=== PATIENT | female | born 2000 | race Caucasian/White ===

== ENCOUNTER 2022-11-03 20:27 | Emergency (ER) | payer BC, SELFPAY ==
--- NOTE | ~2022-11-03 | CT_ITS ---
EXAMINATION: CTA brain carotid DATE: 11/03/2022 21:47 INDICATION: Left facial droop. TECHNIQUE: Computed tomographic angiography (CTA) of the head was performed without and with 200 mL O mnipaque-350 intravenous contrast. CTA of the neck was performed with intravenous contrast. Automated exposure control and iterative reconstruction technique were employed. The dose-length product was 2 969.56 mGy-cm. Maximum intensity projection and volume rendered 3D-reconstructions were created by albert davila technologist on a separate workstation. COMPARISON: None. FINDINGS: HEAD CTA: There is no intracranial hemorrhage, acute infarction, or abnormal intracranial mass lesion . The ventricles are normal in size. The orbits are normal. There is mild mucosal thickening in the p aranasal sinuses. There is a trace right mastoid effusion. The vertebral arteries are codominant. The re is no significant stenosis of basilar artery or the posterior cerebral arteries. There is no signi ficant stenosis of the intracranial internal carotid arteries or anterior or middle cerebral arteries . Anterior communicating artery is normal. Right posterior communicating artery is normal. A left pos terior communicating artery is not identified. There is no aneurysm. NECK CTA: There are no pathologically enlarged lymph nodes. There is no visible plaque in the proxima l internal carotid arteries. There is 0% stenosis of the proximal right internal carotid artery relat zander to normal distal artery lumen diameter (NASCET criteria). There is 0% stenosis of the proximal le ft internal carotid artery relative to normal distal artery lumen diameter. There is mild cervical sp ondylosis. IMPRESSION: 1. Normal brain. No aneurysm or significant intracranial arterial stenosis. 2. 0% stenosis of the proximal internal carotid arteries relative to normal distal artery lumen diame ters (NASCET criteria). Reviewed, dictated and finalized at location [facility]. [facility]ER PANTOGRAPH IMPRESSION: 1. Normal brain. No aneurysm or significant intracranial arterial stenosis. 2. 0% stenosis of the proximal internal carotid arteries relative to normal dis charu artery lumen diameters (NASCET criteria).
[2022-11-03 20:33] VITALS: BP 179/111; PULSE 122; RESP 20; TEMP 36.7; O2SAT 97
--- NOTE | 2022-11-03 20:39 | ECG_ITS ---
Measurements Intervals [place] Rate: 101 P: 60 HI: 166 QRS: 19 QRSD: 89 T: -22 QT: 304 QTc: 396 Interpretive Statements SINUS TACHYCARDIA ST-T WAVE ABNORMALITY IN INFERIOR LEADS- CONSIDER ISCHEMIA BASELINE ARTIFACT- I, II, AVR, V1 ABNORMAL ECG NO PREVIOUS ECG AVAILABLE FOR COMPARISON Electronically Signed On 11-04-2022 7:53:08 RECRUITMENT ADVERTISING MANAGER by Deacon Gonzalez D.O.
[2022-11-03 20:43] LABS: Glucose Point of Care 104 mg/dl (65-105)
[2022-11-03 21:02] VITALS: BP 162/112; PULSE 117; RESP 25; O2SAT 98
[2022-11-03 21:02] LABS: Alanine Aminotransferase 51 U/L (6-35); Albumin Level 4.7 g/dL (3.5-5.1); Alkaline Phosphatase 76 U/L (38-126); Anion Gap 8 mmol/L (8-16); Aspartate Amino Transferase 30 U/L (14-36); Bilirubin,Total 0.4 mg/dL (0.2-1.3); Blood Urea Nitrogen 10 mg/dL (7-17); Carbon Dioxide 26 mmol/L (22-30); Chloride 102 mmol/L (98-107); Estimated Glomerular Filt Rate > 60; Glucose 97 mg/dL (65-110); Potassium 3.5 mmol/L (3.4-5.0); Sodium 136 mmol/L (137-145)
[2022-11-03 21:04] LABS: Prothrombin Time 12.3 Seconds (11.1-14.7)
[2022-11-03 21:05] LABS: Partial Thromboplastin Time 28.9 SECONDS (22.3-36.8)
[2022-11-03 21:14] LABS: Troponin I < 0.012 ng/mL (0.000-0.034)
[2022-11-03 21:17] LABS: Basophils Percent Auto 0.4 % (0.2-1.2); Eosinophils Absolute Auto 0.1 K/mm3 (0-0.3); Eosinophils Percent Auto 1.3 % (0-4.4); Hematocrit 43.7 % (37.0-47.0); Hemoglobin 14.6 g/dL (12.0-15.0); Immature Granulocyte Absolute 0.01 K/mm3 (0.00-0.031); Immature Granulocyte Percent A 0.1 % (0-0.5); Lymphocytes Absolute Auto 2.96 K/mm3 (0.9-3.2); Lymphocytes Percent Auto 31.5 % (18.3-44.2); Mean Corpuscular HGB Conc 33.4 g/dl (32-36); Mean Corpuscular Hemoglobin 29.3 pg (26-34); Mean Corpuscular Volume 87.8 fl (80-100); Mean Platelet Volume 9.1 fl (7.4-10.4); Monocytes Absolute Auto 0.7 K/mm3 (0.1-0.6); Monocytes Percent Auto 7.2 % (2.6-8.5); Neutrophils Absolute Auto 5.6 K/mm3 (1.3-6.7); Neutrophils Percent Auto 59.5 % (45.5-73.1); Platelet Count Result 455 k/mm3 (150-375); Red Blood Count 4.98 M/mm3 (4.2-5.4); Red Cell Distribution Width 13.5 % (11.5-14.5); White Blood Count 9.4 K/mm3 (4.5-10.0)
[2022-11-03 22:00] VITALS: BP 164/108; PULSE 108; RESP 28; O2SAT 100
[2022-11-03 22:40] VITALS: PULSE 100; RESP 18; O2SAT 100
--- NOTE | 2022-11-03 23:10 | ED.NEUROSD ---
HPI - Neuro Symptoms/Deficit General Chief Complaint: Suspected CVA Stated Complaint: left side face droop, headache x2 weeks Time Seen by Provider: 11/03/22 20:54 History of Present Illness HPI Narrative: Patient is a 22-year-old female who presents ER with left-sided facial weakness. She first began to notice it on 10/31/2022. She reports she was high and on her phone when she noticed that the left side of her face was not working well. Over the next couple days she remained at home and did not interact with others. This evening she noticed that the left side of her mouth was not working in a more prominent manner when she smiled and prompted her to come to the ER for evaluation. She is not having trouble eating or drinking. She does have trouble closing her eye and raising her left eyebrow. She has some tingling to the tongue and face. She reports last week she had a febrile illness associate with runny nose and cough. She had had COVID another month or 2 earlier. She has no cough at this time. No shortness of breath. She reports occasional chest discomfort but not with exertion or with deep breaths. She is tried no medications. She has no dizziness or focal weakness in arm or leg. Related Data Allergies Allergy/AdvReac Type Severity Reaction Status Date / Time No Known Allergies Allergy Verified 11/03/22 20:28 Review of Systems Review of Systems: All systems reviewed & are unremarkable except as noted in HPI and below Constitutional: Constitutional: Denies chills and Denies fatigue Eyes: Eyes: Denies dry eyes and Denies loss of vision Cardiovascular: Cardiovascular: Reports no additional cardiovascular complaints Respiratory: Respiratory: Reports no additional respiratory complaints Integumentary/Breasts: Skin/Breast: Denies rash and Denies skin ulcer Neurologic: Reports system reviewed and no additional complaints, except as documented PMFSH Past Medical History Medical History (Updated 11/04/22 @ 06:07 by Gurmeet Laird MD) Depression Surgical History Surgical History (Updated 11/04/22 @ 06:07 by Gurmeet Laird MD) No pertinent past surgical history Social History Social History (Updated 11/04/22 @ 06:09 by Gurmeet Laird MD) Substance use type: marijuana Exam Narrative: GENERAL: Well-appearing, well-nourished, and in no acute distress. HEAD: Normocephalic, atraumatic. EYES: PERRL and EOMI. ENT: Mucous membranes moist. CHEST: Clear to auscultation. No respiratory distress. HEART: Regular rate and rhythm. Normal peripheral pulses. ABDOMEN: Soft, nontender, nondistended. EXTREMITIES: Normal range of motion. No edema. SKIN: Warm, dry, no rash. NEURO: N patient unable to smile and left side of her face, she also has weakness with closing her eye and with lifting her left eyebrow. Sharp and soft touch intact throughout the face. No upper or lower extremity weakness or numbness. Normal [id number] testing and finger-nose testing. Alert and oriented x3. PSYCH: Normal mood and affect. Course Course Emergency Course: Patient resting comfortably. She has been informed of imaging results as well as lab results. 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 We discussed treatment including prednisone and valacyclovir. Recommend follow-up with PCP for further treatment and evaluation. Patient is verbalized understanding has no additional questions/concerns at this time. Vital Signs Vital signs: Vital Signs Temperature 98.0 F 11/03/22 20:33 Pulse Rate 122 H 11/03/22 20:33 Respiratory Rate 20 11/03/22 20:33 Blood Pressure 179/111 H 11/03/22 20:33 Pulse Oximetry 97 11/03/22 20:33 Oxygen Delivery Room Air 11/03/22 20:33 Temperature 98.0 F 11/03/22 20:33 Pulse Rate 100 11/03/22 22:40 Respiratory Rate 18 11/03/22 22:40 Blood Pressure 164/108 H 11/03/22 22:00 Pulse Oximetry 100
== END 2022-11-03 23:47 | disposition home or self-care (01) ==
PROVIDERS: Emergency Provider Emergency Medicine
DX: G51.0 Bell's palsy (principal); Z86.16 Personal history of COVID-19; R00.0 Tachycardia, unspecified; R94.31 Abnormal electrocardiogram [ECG] [EKG]
CPT/HCPCS: 36415; 70496; 70498; 80053; 81025; 82948; 84484; 85025; 85610; 85730; 93005; 99284; Q9967

== ENCOUNTER 2023-08-03 05:56 | Observation (INO) | payer BC, SELFPAY ==
[2023-08-03] VITALS (23 sets, daily range): BP systolic 108–171; BP diastolic 49–103; PULSE 71–108; RESP 14–26; TEMP 36–37.3; O2SAT 98–100; BMI 64.3
--- NOTE | ~2023-08-03 | CT_ITS ---
Clinical Indication: Chest pain, shortness of breath CT Scan of the Chest with Contrast: Technique: Contiguous sections were acquired throughout the chest after intravenous administration of 100 cc of Omnipaque 350. Dose reduction technique was used on this scan by utilizing automated expos ure control and iterative reconstruction technique. The dose-length product (DLP) was 943.19 mGy-cm. Findings: There is no evidence of any significant mediastinal, hilar or axillary lymphadenopathy. There is no f illing defect in the pulmonary arterial tree to suggest pulmonary embolus. There is no evidence of ao rtic dissection or aneurysm. There is no evidence of pleural or pericardial effusion. The lungs are clear. No pulmonary nodules or infiltrates are noted. Images through the upper abdomen reveal suspected fatty infiltration of the liver. Impression: No evidence of pulmonary embolus, aortic dissection, or aortic aneurysm. Clear lungs. Reviewed, dictated and finalized at [facility]. Impression: No evidence of pulmonary embolus, aortic dissection, or aortic aneurysm. Clear lungs.
--- NOTE | ~2023-08-03 | CT_ITS ---
EXAMINATION: CT abdomen pelvis w con DATE: 08/04/2023 15:56 INDICATION: Abdominal pain. TECHNIQUE: Computed tomography (CT) of the abdomen and pelvis was performed with 100 mL Omnipaque 350 intravenous contrast. Automated exposure control and iterative reconstruction technique were employe d. The dose-length product was 1712.33 mGy-cm. COMPARISON: Chest CT 08/03/2023 FINDINGS: The visualized portions of the lung bases are clear without pneumonia or pleural effusion. The heart size is normal. No pericardial effusion. There is diffuse hepatic steatosis. The gallbladde r, spleen, pancreas, adrenal glands, and kidneys are normal. There are no dilated loops of bowel. The appendix is normal. There are no pathologically enlarged lymph nodes. There is no free intraperitone al fluid. There is mild thoracic and lumbar spondylosis. IMPRESSION: 1. Diffuse hepatic steatosis. Reviewed, dictated and finalized at location [facility].
--- NOTE | ~2023-08-03 | US_ITS ---
US right upper quadrant DATE: 08/03/2023 09:04 INDICATION: Epigastric abdominal pain TECHNIQUE: Real-time imaging of liver, pancreas, gallbladder COMPARISON: None FINDINGS: Examination is limited due to body habitus. There is nonspecific heterogeneous hyperechoic echotexture of the liver, likely due to hepatic steato sis. No discrete focal mass lesion of the liver is detected. Normal hepatopedal portal venous flow. No gallstones or gallbladder wall thickening or abnormal pericholecystic fluid collection is detected . No bile duct dilatation is noted. The common bile duct is not well demonstrated. The pancreas is obscured. IMPRESSION: Limited examination due to body habitus; consider CT abdomen examination No gallstones or gallbladder wall thickening Suspected hepatic steatosis Reviewed, dictated and finalized at [facility]. Reviewed, dictated and finalized at location [facility]. IMPRESSION: Limited examination due to body habitus; consider CT abdomen examin ation No gallstones or gallbladder wall thickening Suspected hepatic steatosis
--- NOTE | 2023-08-03 06:12 | ECG_ITS ---
Measurements Intervals [place] Rate: 97 P: 22 UT: 159 QRS: 15 QRSD: 94 T: 241 QT: 330 QTc: 421 Interpretive Statements SINUS RHYTHM ST DEVIATION AND MODERATE T-WAVE ABNORMALITY, CONSIDER LATERAL ISCHEMIA [-0.1+ mV T WAVE IN I/aVL/V5/V6] ST DEVIATION AND MODERATE T-WAVE ABNORMALITY, CONSIDER INFERIOR ISCHEMIA [-0.1+ mV T WAVE IN II/aVF] COMPARED TO ECG 11/03/2022 21:08:51 SINUS RHYTHM NOW PRESENT Electronically Signed On 08-03-2023 15:00:24 CDT by Constantine Madrigal M.D.
[2023-08-03 06:32] LABS: Glucose Point of Care 122 mg/dl (65-105)
[2023-08-03 06:45] LABS: Basophils Percent Auto 0.3 % (0.2-1.2); Eosinophils Absolute Auto 0.1 K/mm3 (0-0.3); Eosinophils Percent Auto 1.3 % (0-4.4); Hematocrit 42.4 % (37.0-47.0); Immature Granulocyte Absolute 0.04 K/mm3 (0.00-0.031); Immature Granulocyte Percent A 0.4 % (0-0.5); Lymphocytes Absolute Auto 1.84 K/mm3 (0.9-3.2); Lymphocytes Percent Auto 20.5 % (18.3-44.2); Mean Corpuscular Hemoglobin 29.2 pg (26-34); Mean Corpuscular Volume 88.5 fl (80-100); Mean Platelet Volume 9.2 fl (7.4-10.4); Monocytes Absolute Auto 0.7 K/mm3 (0.1-0.6); Monocytes Percent Auto 8.1 % (2.6-8.5); Neutrophils Absolute Auto 6.2 K/mm3 (1.3-6.7); Neutrophils Percent Auto 69.4 % (45.5-73.1); Platelet Count Result 365 k/mm3 (150-375); Red Blood Count 4.79 M/mm3 (4.2-5.4); Red Cell Distribution Width 13.5 % (11.5-14.5)
[2023-08-03 06:53] LABS: Alanine Aminotransferase 45 U/L (6-35); Albumin Level 4.2 g/dL (3.5-5.1); Alkaline Phosphatase 70 U/L (38-126); Anion Gap 10 mmol/L (8-16); Aspartate Amino Transferase 39 U/L (14-36); Bilirubin,Total 0.6 mg/dL (0.2-1.3); Blood Urea Nitrogen 7 mg/dL (7-17); Calcium 8.6 mg/dL (8.4-10.2); Carbon Dioxide 22 mmol/L (22-30); Chloride 106 mmol/L (98-107); Estimated CRCL calculation 171 ml/min; Estimated Glomerular Filt Rate > 60; Glucose 123 mg/dL (65-110); Potassium 3.4 mmol/L (3.4-5.0); Sodium 138 mmol/L (137-145)
--- NOTE | 2023-08-03 07:13 | PC.NURSE ---
Report to JEROME Jeffers
[2023-08-03] MEDS: SODIUM CHLORIDE 0.9% IV 1,000 ML 999 ML IV CONT (07:44)
[2023-08-03] MEDS: ONDANSETRON INJ 4 MG/2 ML VIAL IV PUSH (07:46)
[2023-08-03] MEDS: MORPHINE SULFATE (*CRX) 4 MG/ML INJ IV PUSH (07:47)
[2023-08-03 07:48] LABS: Appearance Urine Turbid (Clear); Bacteria Urine 4+ /hpf; Bilirubin Urine 1+ (Negative); Blood Urine Negative (Negative); Color Urine Dark Yellow (Yellow); Glucose Urine UA Negative (Negative); Ketones Urine Negative (Negative); Leukocyte Esterase Ur 1+ LEU/UL (Negative); Need Manual Microscopic Reviewed; Nitrate Urine Negative (Negative); Non Pathogenic Casts >20; Protein Urine 1+ mg/dL (Negative); Specific Grav Ur 1.028 (1.001-1.035); Squamous Epithelial Cell Urine Many /hpf (Few); WBC Urine 51-100 /hpf; pH Urine 5.5 (5.0-9.0)
[2023-08-03 07:49] LABS: Add Urine Microscopic? YES
--- NOTE | 2023-08-03 07:50 | ED.GENADULT ---
HPI - General Adult General Chief complaint: Unspecified Stated complaint: multiple complaints Time Seen by Provider: 08/03/23 07:01 History of Present Illness HPI narrative: Patient is a 23-year-old female who presents ER with multiple issues. Her main complaint is chest pain central for the last couple of days. Associated with dyspnea. Pain worsens with deep breath. She endorses an exertional syncope related to this x2. She also reports poor appetite and pain with eating. She has some mild epigastric pain that is worse with palpation. No diarrhea. No nausea or vomiting. Subjective fevers and chills. Patient is morbidly obese but otherwise denies any chronic illness. Related Data Home Medications Medication Instructions Recorded Confirmed No Home Medications 08/03/23 08/03/23 Allergies Allergy/AdvReac Type Severity Reaction Status Date / Time No Known Allergies Allergy Verified 11/03/22 20:28 Review of Systems Review of Systems: All systems reviewed & are unremarkable except as noted in HPI and below Constitutional: Constitutional: Reports chills, Reports fatigue and Reports fever(s) ENT: Denies nasal congestion and Denies sore throat Cardiovascular: Cardiovascular: Reports chest pain, Denies rapid heart rate, Denies radiating jaw, neck or arm pain, Denies palpitations and Reports dyspnea Respiratory: Respiratory: Denies cough, Reports pain on inspiration, Denies pain with cough and Reports dyspnea on exertion Gastrointestinal: Gastrointestinal: Reports abdominal pain, Denies constipation, Denies diarrhea, Denies nausea and Denies vomiting Musculoskeletal: Musculoskeletal: Reports no additional musculoskeletal complaints PMFSH Past Medical History Medical History Anxiety Asthma Borderline personality disorder Depression Hypertension Meningitis Morbid obesity Seizure Suicide attempt Surgical History Surgical History History of eye surgery Left eye surgery for amblyopia Social History Social History Social History: Surrogate medical decision maker: Taras Pruitt, significant other. Code status: Full code. Smoking status: Never smoker Alcohol intake: never Substance use: current Substance use type: marijuana Last use: 07/31/23 Lack of Transportation: No Lack of Food: Never True Current Housing: I Have Housing Concerned About Future Housing: No Difficulty Paying Gas/Electric Bills: No Difficulty Paying for Meds: No Currently Unemployed: No Education: High School Diploma/GED Difficulty w/ Childcare or Family Care: No Additional living arrangements comments: Lives in [place]. Additional occupation/education comments: [employer]. Spiritual care concerns: No Exam Narrative: GENERAL: Well-appearing, morbidly obese, and in no acute distress. HEAD: Normocephalic, atraumatic. EYES: PERRL and EOMI. ENT: Mucous membranes moist. CHEST: Clear to auscultation. No respiratory distress. HEART: Regular rate and rhythm. Normal peripheral pulses. ABDOMEN: Soft, epigastric tenderness with guarding, nondistended. EXTREMITIES: Normal range of motion. No edema. SKIN: Warm, dry, no rash. NEURO: Alert and oriented x3. PSYCH: Normal mood and affect. Course Course Emergency Course: Patient without urinary symptoms but urine appears infected. Will start on IV antibiotics. Patient with exertional syncope and chest pain with ST depression. Admit to hospital service. Sandy Duron contacted with cardiology and will consult. Hospital service has accepted the patient would like the patient started on some antihypertensives, lisinopril 10 mg ordered. Vital Signs Vital signs: Vital Signs Pulse Rate 94 08/03/23 06:06 Respiratory Rate 16 08/03/23 06:06 Blood Pressure 159/103 H 08/03/23 06:06 P
--- NOTE | 2023-08-03 07:52 | PC.NURSE ---
Pt to CT via stretcher at this time. 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
[2023-08-03 10:22] LABS: Troponin I < 0.012 ng/mL (0.000-0.034)
[2023-08-03 10:36] LABS: Troponin I < 0.012 ng/mL (0.000-0.034)
[2023-08-03 12:40] LABS: Troponin I < 0.012 ng/mL (0.000-0.034)
[2023-08-03] MEDS: lisinopriL 10 MG TABLET PO (13:30)
--- NOTE | 2023-08-03 14:23 | PM.IMHP ---
H&P: HPI History of Present Illness Date/Time: 08/03/23 13:00 Chief Complaint: Multiple complaints. Narrative: This is a very pleasant 23-year-old female with history of seizure, hypertension, asthma, depression, anxiety, morbid obesity, posttraumatic stress disorder, and borderline personality disorder who presented to the emergency department via private vehicle for evaluation of multiple complaints. The patient provides the following history. She had a flu shot on and had an uneventful 2 days thereafter. Wednesday evening into Wednesday morning she developed ?excruciating? diffuse abdominal pain associated with nausea and several episodes of diarrhea. She also felt chilled, feverish, and flushed. After repeated trips to the bathroom she started to feel a bit short of breath when walking last couple of days she has had a mid chest ?gripping? discomfort which seems to extend down into the abdomen. She has vague posterior headache and neck ache for which she has been taking acetaminophen, ibuprofen, and Excedrin without much benefit. Yesterday morning she walked down the steps to fetch a package and at that time she was feeling very weak, lightheaded, and ?fuzzy.? She briefly lost consciousness and fell forward onto the top step. She came to quite quickly and sustained no injuries. She decided to come in today for evaluation as she still feels weak. She denies sick contacts, visual changes, facial droop, difficulty speaking and swallowing, focal weakness, paresthesias, sensations of racing heart, vomiting, and dysuria. She has occasional lower extremity edema but denies calf pain. No history of venous thromboembolism. In the ED: She was afebrile on arrival. Blood pressures have been stable if not a bit high. She has no oxygen requirement. Labs were pretty unremarkable aside from a random glucose of 122 and mildly elevated AST and ALT. Troponin was negative. Urine was positive for 1+ leukocyte esterase, 51 to 100 WBC, and 4+ bacteria however many squamous cells were noted and she admits that she had a difficult time obtaining a clean-catch. She has absolutely no symptoms of UTI. CT of the chest was unremarkable. Right upper quadrant showed no gallstones or gallbladder wall thickening and suspected hepatic steatosis. EKG showed sinus rhythm with ST deviation and moderate T-wave abnormalities in the lateral and inferior leads which is similar to a previous EKG tracing in October 2022. She is being admitted in this setting for close monitoring and Cardiology consultation. Review of Systems Review of Systems: Twelve systems were reviewed and are negative except for as per HPI. [facility] Past Medical History Medical History (Updated 08/03/23 @ 23:53 by Nazanin Bernardo PA-C) Anxiety Asthma Borderline personality disorder Depression Hypertension Meningitis Morbid obesity Seizure Suicide attempt Surgical History Surgical History History of eye surgery Left eye surgery for amblyopia Social History Social History Social History: Surrogate medical decision maker: Taras Pruitt, significant other. Code status: Full code. Smoking status: Never smoker Alcohol intake: never Substance use: current Substance use type: marijuana Last use: 07/31/23 Lack of Transportation: No Lack of Food: Never True Current Housing: I Have Housing Concerned About Future Housing: No Difficulty Paying Gas/Electric Bills: No Difficulty Paying for Meds: No Currently Unemployed: No Education: High School Diploma/GED Difficulty w/ Childcare or Family Care: No Additional living arrangements comments: Lives in [place]. Additional occupation/education comments: [employer]. Spiritual care concerns: No Meds Home Medications and Allergies Home Medications Medication Instructions Recorded Confirmed Type No Home M
--- NOTE | 2023-08-03 14:52 | PM.CNCAR ---
Assessment and Plan Assessment and plan (1) Chest pain: Code(s): R07.9 - Chest pain, unspecified Status: Acute Assessment and Plan: Atypical chest pain. She has normal serial troponin levels and EKG from today looks unchanged from EKG in October. She does have some lateral T-wave inversions, minimal ST depression leads I and II. Chest pain likely noncardiac. Will check an echocardiogram. She does have risk factors for cardiovascular disease including morbid obesity and hypertension. No further cardiac recommendations at this point. Will leave any further recommendations after review of echocardiogram. (2) Syncope: Code(s): R55 - Syncope and collapse Status: Acute Assessment and Plan: Probably related to hypovolemia/hypotension from diarrhea and vomiting. Check orthostatic vital signs. Continue telemetry History of Present Illness History of Present Illness Consult date/time: 08/03/23 14:52 Requesting physician: Gurmeet Laird MD Consult reason: chest pain Reason For Visit: exertional syncope,uti Narrative: Nidhi Croft is a 23-year-old female with no known medical problems. She comes to the hospital with a chief complaint of mid epigastric pain as well as substernal chest pain. The pain began 2 days ago. She describes the pain as a feeling like somebody is tightening their hand around her esophagus. She also has chest discomfort with deep breathing. She states that when she takes a deep breath the pain radiates from her chest down to her stomach, through her back, and then to her head. She has also had 2 syncopal events in the past 2 days. One of these events happened when she was ascending the stairs and another happened when she was walking from the kitchen to her bedroom. She states that she did lose consciousness both times. She states that she has had vomiting and diarrhea as well and both of these events happen after she began to have significant diarrhea. She denies any palpitations, shortness of breath. She states that she had improvement of her chest pain in the emergency department when she received morphine but her chest discomfort has returned at this point. Review of Systems Review of Systems: All systems reviewed & are unremarkable except as noted in HPI and below PMFSH Past Medical History Medical History Anxiety Asthma Borderline personality disorder Depression Hypertension Meningitis Morbid obesity Seizure Suicide attempt Surgical History Surgical History History of eye surgery Left eye surgery for amblyopia Social History Social History Social History: Surrogate medical decision maker: Taras Pruitt, significant other. Code status: Full code. Smoking status: Never smoker Alcohol intake: never Substance use: current Substance use type: marijuana Last use: 07/31/23 Lack of Transportation: No Lack of Food: Never True Current Housing: I Have Housing Concerned About Future Housing: No Difficulty Paying Gas/Electric Bills: No Difficulty Paying for Meds: No Currently Unemployed: No Education: High School Diploma/GED Difficulty w/ Childcare or Family Care: No Additional living arrangements comments: Lives in [place]. Additional occupation/education comments: [employer]. Spiritual care concerns: No Meds Home Medications and Allergies Home Medications Medication Instructions Recorded Confirmed Type No Home Medications 08/03/23 08/03/23 History Allergies Allergy/AdvReac Type Severity Reaction Status Date / Time No Known Allergies Allergy Verified 11/03/22 20:28 Vital Signs Vital Signs - 24 hr 08/03/23 06:06 08/03/23 06:33 08/03/23 06:34 Temperature Pulse Rate 94 94 101 H Respiratory Rate 16 26 H Blood Pressure 159/10
[2023-08-03] MEDS: ACETAMINOPHEN 325 MG TABLET 650 MG PO ×2 (17:15→21:00)
[2023-08-03] MEDS: ENOXAPARIN 40 MG/0.4 ML SYRINGE SUB-Q (20:59)
[2023-08-04] VITALS (10 sets, daily range): BP systolic 103–162; BP diastolic 53–84; PULSE 71–88; RESP 16–20; TEMP 36.1–36.7; O2SAT 98–100
[2023-08-04] MEDS: metroNIDAZOLE 500 MG/ISO 100ML 500 MG/100 ML BAG 100 MG IVPB ×4 (00:58→23:31)
[2023-08-04] MEDS: LACTATED RINGERS 1,000 ML 100 ML IV CONT ×3 (01:03→23:32)
--- NOTE | 2023-08-04 06:00 | ECHO_ITS ---
Patient Info Name: Nidhi Croft Age: 23 years : 2000 Gender: Female Ht: 64 in Wt: 375 lbs BSA: 2.89 m2 HR: 80 bpm BP: 106 / 57 mmHg Heart Rhythm: Sinus Rhythm Technical Quality: Poor Exam Date: 08/04/2023 9:28 AM Exam Location: [facility] Patient Status: Outpatient Admit Date: 08/03/2023 Staff Ordering Physician: Gurmeet Laird MD Deoiling Machine Operator: Ria Arzola RDCS Attending Provider: Saad Vasquez MD Referring Physician: Eitan FISHER; Exam Type: CA echo dop color flow w con Study Info Indications - syncope Complete two-dimensional, color flow and Doppler transthoracic echocardiogram is performed with contrast to opacify the left ventricle and to improve the deliniation of the left ventricle endocardial borders. Contrast/Agitated Saline Contrast/Ag. Saline: Definity Amount: 3.00 ml Reason for Poor Study: poor echocardiographic windows Summary 1. Technically difficult study with limited views. Definity contrast administered. 2. Left ventricular chamber dimension is normal. 3. Left ventricular systolic function is normal, estimated at 60-65%. 4. There is moderately increased left ventricular wall thickness. 5. The left ventricular diastolic function is grade II diastolic dysfunction. 6. There is no aortic valve stenosis. 7. There is no mitral valve regurgitation. 8. No pulmonary hypertension, estimated pulmonary arterial systolic pressure is 14 mmHg. 9. The tricuspid valve leaflets are not well visualized. Left Ventricle Left ventricular chamber dimension is normal. Left ventricular systolic function is normal, estimated at 60-65%. There is moderately increased left ventricular wall thickness. The left ventricular diastolic function is grade II diastolic dysfunction. Technically difficult study with limited views. Definity contrast administered. Right Ventricle Right ventricular chamber dimension is normal. Right ventricular systolic function is normal. Left Atria Left atrial chamber dimension is normal. Right Atria Right atrial chamber dimension is normal. Aortic Valve The aortic valve is not well visualized. There is no aortic valve stenosis. There is no aortic valve regurgitation. Pulmonic Valve The pulmonic valve is not well visualized. Mitral Valve The mitral valve has normal leaflets. There is no mitral valve regurgitation. Tricuspid Valve The tricuspid valve leaflets are not well visualized. No pulmonary hypertension, estimated pulmonary arterial systolic pressure is 14 mmHg. Pericardium/Pleural The pericardium appears not well visualized. There is trivial pericardial effusion. Aorta The aortic root size at the sinus of Valsalva is normal. Left Ventricular Outflow Tract Name Value Normal LVOT 2D LVOT Diameter 2.09 cm LVOT Doppler LVOT Peak Gradient 5 mmHg LVOT Mean Gradient 3 mmHg LVOT VTI 28.25 cm LVOT VTI/AV VTI Ratio 0.90 LVOT Stroke Volume 96.47 ml LVOT CO 6.56 l/min LVOT CI
[2023-08-04 06:05] LABS: Hemoglobin 12.5 g/dL (12.0-15.0); Mean Corpuscular HGB Conc 32.1 g/dl (32-36); Mean Corpuscular Hemoglobin 29.3 pg (26-34); Mean Corpuscular Volume 91.5 fl (80-100); Mean Platelet Volume 9.5 fl (7.4-10.4); Platelet Count Result 333 k/mm3 (150-375); Red Blood Count 4.26 M/mm3 (4.2-5.4); White Blood Count 5.3 K/mm3 (4.5-10.0)
[2023-08-04 06:22] LABS: Alanine Aminotransferase 61 U/L (6-35); Albumin Level 3.6 g/dL (3.5-5.1); Alkaline Phosphatase 59 U/L (38-126); Anion Gap 6 mmol/L (8-16); Aspartate Amino Transferase 48 U/L (14-36); Bilirubin,Total 0.4 mg/dL (0.2-1.3); Blood Urea Nitrogen 9 mg/dL (7-17); CRP 4.1 mg/dL (<1.0); Calcium 8.2 mg/dL (8.4-10.2); Carbon Dioxide 26 mmol/L (22-30); Chloride 106 mmol/L (98-107); Estimated CRCL calculation 172 ml/min; Estimated Glomerular Filt Rate > 60; Glucose 98 mg/dL (65-110); Magnesium 2.2 mg/dL (1.6-2.3); Potassium 3.2 mmol/L (3.4-5.0); Sodium 138 mmol/L (137-145)
--- NOTE | 2023-08-04 08:36 | PC.NURSE ---
pt refusing breakfast stating she is getting discharged this am. nurse explained that we don't have a discharge order in. nurse stating that if she is getting discharged, sometimes it isn't until later in the day. nurse stated that the doctors haven't made their rounds yet to make the determination about discharge status. pt still refuses breakfast and instead wants an apple juice.
[2023-08-04] MEDS: ENOXAPARIN 40 MG/0.4 ML SYRINGE SUB-Q (08:50)
[2023-08-04] MEDS: PERFLUTREN LIPID MICROSPHERES 1.5 ML VIAL DILUTED TO 10 ML TOTAL VOLUME IV PUSH (09:30)
--- NOTE | 2023-08-04 09:39 | P.PNIM_ITS ---
Progress Note: A&P Assessment and Plan (1) Syncope: Code(s): R55 - Syncope and collapse Status: Acute Assessment and Plan: 08/03/2023: * Patient had a syncopal episode yesterday with prodrome to include weakness, lightheadedness, dizziness, and darkening vision. Likely due to orthostatic hypotension or component of dehydration from diarrhea. Cardiac dysrhythmia is a consideration but seems less likely. She is being monitored on telemetry. Echocardiogram ordered given abnormal EKG. 08/04/23: * Denies lightheadedness, dizziness, blurred vision, headache today * Cardiology consulted in following * Echo completed today, pending results (2) Chest pain: Code(s): R07.9 - Chest pain, unspecified Status: Acute Assessment and Plan: 08/03/23: * She has reproducible tenderness to palpation over the chest wall. Unlikely to be cardiac in etiology. Echo pending as above. 08/04/23: * Patient denies any chest pain at this time * Echo results pending (3) Left sided abdominal pain: Code(s): R10.9 - Unspecified abdominal pain Status: Acute Assessment and Plan: 08/03/2023: * Patient has had abdominal pain and diarrhea the last several days. May have diverticulitis or a colitis. She had contrast today already and her abdominal exam is not too bad thus will hold on imaging at this time. She has been started on ceftriaxone and metronidazole. If no improvement imaging may be prudent. 08/04/23: * Patient states that she has right upper quadrant pain and right lower quadrant pain today. * UA positive for 1+ protein, 1+ bili, 1+ leukocyte, 4+ bacteria. UA did show many epithelial cells which could be contamination of the specimen. On exam p atient denies any urinary urgency, frequency, dysuria, hematuria. * Urine culture pending * Continue Rocephin and Flagyl for now * Will get a CT the abdomen pelvis today to rule out diverticulitis, pancr eatitis, colitis. (4) Abnormal EKG: Code(s): R94.31 - Abnormal electrocardiogram [ECG] [EKG] Status: Acute Assessment and Plan: 08/03/2023: * EKG shows ST deviations in the inferior and lateral leads however these are comparable to a tracing obtained in October 2022. Cardiology has been consulted for further evaluation recommendations. Echocardiogram is pending. 08/04/2023: * Cardiology consulted and following * Echo pending results (5) Abnormal urinalysis: Code(s): R82.90 - Unspecified abnormal findings in urine Status: Acute Assessment and Plan: 08/03/2023: * Patient is not having any symptoms of UTI and she admits having difficulties trying to obtain a clean-catch specimen. This looks contaminated and she does not give any history to suggest active UTI. 08/04/2023: * Patient denies any urinary frequency, urgency, hematuria, dysuria. * UA positive for 1+ protein, 1+ bili, 1+ leukocytes, 4+ bacteria, multiple epithelial cells seen on this specimen indicate contamination * Urine culture pending * Continue Rocephin for now * Will obtain another clean-catch specimen today (6) Hypertension: Code(s): I10 - Essential (primary) hypertension Status: Acute Assessment and Plan: 08/03/2023: * Blood pressures were reviewed and they have been running a bit high. She received lisinopril 10 mg in the ED. Unclear if this is a home medication. Continue to monitor closely and initiate hypertensives if indicated. 08/04/23: * Blood pressure kinsey
--- NOTE | 2023-08-04 09:39 | PM.IMPN ---
Progress Note: A&P Assessment and Plan (1) Syncope: Code(s): R55 - Syncope and collapse Status: Acute Assessment and Plan: 08/03/2023: Patient had a syncopal episode yesterday with prodrome to include weakness, lightheadedness, dizziness, and darkening vision. Likely due to orthostatic hypotension or component of dehydration from diarrhea. Cardiac dysrhythmia is a consideration but seems less likely. She is being monitored on telemetry. Echocardiogram ordered given abnormal EKG. 08/04/23: Denies lightheadedness, dizziness, blurred vision, headache today Cardiology consulted in following Echo completed today, pending results (2) Chest pain: Code(s): R07.9 - Chest pain, unspecified Status: Acute Assessment and Plan: 08/03/23: She has reproducible tenderness to palpation over the chest wall. Unlikely to be cardiac in etiology. Echo pending as above. 08/04/23: Patient denies any chest pain at this time Echo results pending (3) Left sided abdominal pain: Code(s): R10.9 - Unspecified abdominal pain Status: Acute Assessment and Plan: 08/03/2023: Patient has had abdominal pain and diarrhea the last several days. May have diverticulitis or a colitis. She had contrast today already and her abdominal exam is not too bad thus will hold on imaging at this time. She has been started on ceftriaxone and metronidazole. If no improvement imaging may be prudent. 08/04/23: Patient states that she has right upper quadrant pain and right lower quadrant pain today. UA positive for 1+ protein, 1+ bili, 1+ leukocyte, 4+ bacteria. UA did show many epithelial cells which could be contamination of the specimen. On exam patient denies any urinary urgency, frequency, dysuria, hematuria. Urine culture pending Continue Rocephin and Flagyl for now Will get a CT the abdomen pelvis today to rule out diverticulitis, pancreatitis, colitis. (4) Abnormal EKG: Code(s): R94.31 - Abnormal electrocardiogram [ECG] [EKG] Status: Acute Assessment and Plan: 08/03/2023: EKG shows ST deviations in the inferior and lateral leads however these are comparable to a tracing obtained in October 2022. Cardiology has been consulted for further evaluation recommendations. Echocardiogram is pending. 08/04/2023: Cardiology consulted and following Echo pending results (5) Abnormal urinalysis: Code(s): R82.90 - Unspecified abnormal findings in urine Status: Acute Assessment and Plan: 08/03/2023: Patient is not having any symptoms of UTI and she admits having difficulties trying to obtain a clean-catch specimen. This looks contaminated and she does not give any history to suggest active UTI. 08/04/2023: Patient denies any urinary frequency, urgency, hematuria, dysuria. UA positive for 1+ protein, 1+ bili, 1+ leukocytes, 4+ bacteria, multiple epithelial cells seen on this specimen indicate contamination Urine culture pending Continue Lonephin for now Will obtain another clean-catch specimen today (6) Hypertension: Code(s): I10 - Essential (primary) hypertension Status: Acute Assessment and Plan: 08/03/2023: Blood pressures were reviewed and they have been running a bit high. She received lisinopril 10 mg in the ED. Unclear if this is a home medication. Continue to monitor closely and initiate hypertensives if indicated. 08/04/23: Blood pressure ranging 103/53- 108/49, after receiving lisinopril 10 mg in the ED. Patient not on any home medication for blood pressure Subjective Date/time seen: 08/04/23 09:39 Interval history: This is a 23 year old female who presented to the ED on 08/03/23 with multiple complaints. She reportedly recieved a flu vaccine last . She started having diffuse abdominal pain with nausea and diarrhea. Then on 08/02/23 patient went down some steps at her home to retrieve a package w
[2023-08-04 20:07] LABS: Appearance Urine Clear (Clear); Bacteria Urine None Seen /hpf; Bilirubin Urine Negative (Negative); Blood Urine Negative (Negative); Color Urine Yellow (Yellow); Glucose Urine UA Negative (Negative); Ketones Urine Negative (Negative); Leukocyte Esterase Ur 1+ LEU/UL (NEGATIVE); Nitrate Urine Negative (Negative); Non Pathogenic Casts 0-2; Protein Urine Negative (Negative); RBC Urine 0-2 /hpf (0-2); Squamous Epithelial Cell Urine Few /hpf (Few); WBC Urine 21-50 /hpf (0-3)
[2023-08-04 20:12] LABS: Add Urine Microscopic? YES; Specific Grav Ur 1.059 (1.001-1.035)
--- NOTE | 2023-08-04 23:26 | ECG_ITS ---
Measurements Intervals [place] Rate: 80 P: 29 MO: 170 QRS: 31 QRSD: 96 T: -40 QT: 354 QTc: 410 Interpretive Statements SINUS RHYTHM RSR' V1 AND V2 ST ABNORMALITY CONSIDER ANTEROLATERAL ISCHEMIA ABNORMAL ECG COMPARED TO ECG 08/03/2023 06:17:58 NO SIGNIFICANT CHANGES Electronically Signed On 08-05-2023 17:13:34 CDT by Juanito Monte M.D.
[2023-08-04] MEDS: HYDROcodone/acetaminophen (*CRX) 5-325 MG TABLET 1 TAB PO (23:32)
[2023-08-05] VITALS: PULSE 87
[2023-08-05] MEDS: hydrOXYzine HCL 12.5 MG TABLET PO (00:24)
[2023-08-05] MEDS: KETOROLAC 30 MG/ML VIAL (*BKC) IV PUSH (00:36)
[2023-08-05 04:00] VITALS: PULSE 73
[2023-08-05 06:00] VITALS: BP 130/58; PULSE 77; RESP 16; TEMP 36.1; O2SAT 98
[2023-08-05 06:31] LABS: Hematocrit 37.6 % (37.0-47.0); Hemoglobin 12.4 g/dL (12.0-15.0); Mean Corpuscular Hemoglobin 29.5 pg (26-34); Mean Corpuscular Volume 89.5 fl (80-100); Mean Platelet Volume 9.5 fl (7.4-10.4); Platelet Count Result 364 k/mm3 (150-375); Red Cell Distribution Width 13.7 % (11.5-14.5); White Blood Count 6.4 K/mm3 (4.5-10.0)
[2023-08-05 06:46] LABS: Anion Gap 7 mmol/L (8-16); Blood Urea Nitrogen 12 mg/dL (7-17); Calcium 8.4 mg/dL (8.4-10.2); Carbon Dioxide 23 mmol/L (22-30); Chloride 108 mmol/L (98-107); Estimated CRCL calculation 171 ml/min; Estimated Glomerular Filt Rate > 60; Glucose 95 mg/dL (65-110); Lipase 67 U/L (23-300); Potassium 3.4 mmol/L (3.4-5.0); Sodium 138 mmol/L (137-145)
--- NOTE | 2023-08-05 07:32 | IVDEFINITY ---
Prior to administration of IV Definity the patient was educated on the risks and benefits of the imaging enhancing agent including potential adverse side effects. The patient verbalized understanding. Allergies were verified. No exclusion criteria were identified and at least one of the following inclusion criteria were met: 1) physician request, 2) patient technically difficult to image (per the [place] [employer] guidelines of two or more segments not discernable within the apical view), or 3) questionable left ventricular function. ?
--- NOTE | 2023-08-05 07:51 | PM.DS ---
DS: Admitting Diagnosis Discharge Date 08/05/23 Admitting Diagnosis Syncope chest pain left-sided abdominal pain abnormal EKG abnormal urinalysis hypertension DS: Discharge Diagnosis Discharge Diagnosis (1) Syncope: Code(s): R55 - Syncope and collapse Status: Acute (2) Chest pain: Code(s): R07.9 - Chest pain, unspecified Status: Acute (3) Left sided abdominal pain: Code(s): R10.9 - Unspecified abdominal pain Status: Acute (4) Abnormal EKG: Code(s): R94.31 - Abnormal electrocardiogram [ECG] [EKG] Status: Acute (5) Abnormal urinalysis: Code(s): R82.90 - Unspecified abnormal findings in urine Status: Acute (6) Hypertension: Code(s): I10 - Essential (primary) hypertension Status: Acute DS: Summary Hospital Course Reason for hospitalization: syncope UTI Hospital Course: This 20-year-old female presented to the ER on 08/03/23 with multiple complaints. She stated over the weekend she was having diffuse abdominal pain with nausea and diarrhea. On 08/02/2023 patient went down some steps at her home to retrieve a package when she started feeling lightheaded weak and dizzy she did have a brief episode of loss of consciousness and fell forward onto the top step. She did not sustain any injuries. Workup in the hospital included a CT of the chest which was negative for PE, aortic aneurysm, and aortic dissection. She also had a CT of her abdomen pelvis yesterday which was relatively negative other than the hepatic steatosis. while here we did check a urine on her which did show 1+ leukocytes 4+ bacteria however the specimen looked contaminated with many squamous epithelial cells. Urine culture was sent which is showing Gram-negative bacilli. We did repeat a UA on her which only shown 1+ leukocytes and was a clean-catch. Spoke with Infectious Disease pharmacist about the Gram-negative bacilli her urine culture however patient does not have any urinary symptoms and her UA done yesterday only showed 1+ leukocytes is safe to send her home without any oral antibiotics. Patient denied any urinary frequency, urgency, dysuria, or hematuria. Patient also denies any nausea vomiting diarrhea and abdominal pain. Patient was treated with Rocephin and Flagyl. Flagyl was DC'd post abdomen/pelvis CT. Cardiology was also consulted for possible syncopal episode. Their recommendations was to get an echo which was read yesterday and shown an estimated EF of 60-65% left ventricle diastolic function is grade 2 diastolic dysfunction, RV function is normal. Her episode of LOC/passing out could easily be explained with dehydration from her multiple episodes of nausea, diarrhea through the weekend. She is to follow up in 1 week with PCP. Status at Discharge Cognitive/behavioral status at discharge: patient is alert oriented x3 Functional status at discharge: independent ambulation Overall status at discharge: patient is back to baseline Time Spent with Patient Time attestation: Total time spent providing and/or coordinating discharge services: Time spent: Less than 30 minutes Exam Narrative: General: Well-developed female, no acute distress HEENT: Normocephalic, atraumatic. PERRL, EOMI.Oral mucosa moist and pink. Oropharynx is clear. Neck: Supple. Trachea midline, No adenopathy Respiratory: Lungs are clear to auscultation bilaterally, no adventitious lung sounds Cardiovascular: Regular rate and rhythm with normal S1-S2. 2/2+ pulses all extremities. No murmur, friction rub, clicks. Chest: Reported chest pain on admission however not complaining of pain at this time. Gastrointestinal: Abdomen is soft, morbidly obese, nondistended with normal active bowel sounds. She is tender to palpation in RUQ and RLQ. No guarding or rebound tenderness. Skin: Warm and dry. No rash or lesions noted Extremities: No cyanosis or clubbing. Moves all extremities well. Strength 5/5
[2023-08-05 08:00] VITALS: PULSE 78
--- NOTE | 2023-08-05 09:22 | PM.PNCARD ---
Progress Note: A&P Assessment and Plan (1) Chest pain: Code(s): R07.9 - Chest pain, unspecified Status: Acute Assessment and Plan: Atypical chest pain. She has normal serial troponin levels and EKG from today looks unchanged from EKG in October. Chest pain likely noncardiac. Will check an echocardiogram. She does have risk factors for cardiovascular disease including morbid obesity and hypertension. Echocardiogram showed moderate LV wall thickening, grade II diastolic dysfunction; otherwise unremarkable. (2) Syncope: Code(s): R55 - Syncope and collapse Status: Acute Assessment and Plan: Probably related to hypovolemia/hypotension from diarrhea and vomiting. Check orthostatic vital signs. Continue telemetry Subjective Date/time seen: 08/05/23 09:22 Interval history: Cardiology follow up for chest pain Review of Systems Review of Systems: All systems reviewed & are unremarkable except as noted in HPI and below Exam Const: General: comfortable, no acute distress, alert and awake Orientation/consciousness: patient oriented x3 Other: Morbidly obese young female lying comfortably in bed. HENMT: Head: normal to inspection Eyes: General: appearance normal, both eyes and all related structures Pupils: Equal, round and reactive pupils present Neck: Neck: normal visual inspection, supple and no JVD Carotids: normal carotid upstroke Resp: Effort & Inspection: normal respiratory effort Auscultation: clear to auscultation bilaterally Cardio: Rate: regular rate Rhythm: regular rhythm Heart sounds: S1 normal heart sound present, S2 normal heart sound present and no murmurs Other: Reproducible chest wall pain to palpation GI: Auscultation: normal bowel sounds Skin: General skin exam: normal color Neuro: General: patient oriented x3 Cranial nerves: Yes Equal, round and reactive pupils present Extrem: General: normal to inspection Other: No edema. Distal pulses intact. Psych: Appearance: grossly normal Mental Status: mental status grossly normal Objective Data Vital Signs Vital Signs: Vital Signs - 24 hr 08/04/23 14:00 08/04/23 12:00 08/04/23 16:00 Temperature 36.7 C Pulse Rate 80 77 84 Respiratory Rate 16 Blood Pressure Pulse Oximetry 100 Oxygen Delivery 08/04/23 21:48 08/04/23 23:25 08/05/23 00:00 Temperature 36.7 C Pulse Rate 88 85 87 Respiratory Rate 16 18 Blood Pressure 162/84 H 152/78 H Pulse Oximetry 98 100 Oxygen Delivery 08/05/23 04:00 08/05/23 06:00 08/05/23 08:00 Temperature 36.1 C L Pulse Rate 73 77 Respiratory Rate 16 Blood Pressure 130/58 L Pulse Oximetry 98 Oxygen Delivery Room Air Intake/Output Intake/Output: Intake & Output 08/02/23 08/03/23 08/04/23 08/05/23 23:59 23:59 23:59 23:59 Intake Total 1408 3236 400 Output Total 600 Balance 1408 2636 400 Meds/Results Medications: Active Medications Generic Name Dose Route Start Last Admin Trade Name Freq PRN Reason Stop Dose Admin Acetaminophen 650 mg 08/03/23 10:37 08/03/23 21:00 Acetaminophen 325 Mg Tablet PO 650 mg Q4H PRN Administration Mild Pain (1-3) or Fever Hydrocodone Bitart/Acetaminophen 1 tab 08/03/23 23:58 08/04/23 23:32 Hydrocodone/Acetaminophen (*Crx) 5-325 Mg Tablet PO 1 tab Q6H PRN Administration Pain Rated 4-6 Enoxaparin Sodium 40 mg 08/03/23 21:00 08/05/23 08:33 Enoxaparin 40 Mg/0.4 Ml Syringe SUB-Q Not Given Q12HR [facility] Hydroxyzine HCl 12.5 mg 08/04/23 23:46 08/05/23 00:24 Hydroxyzine Hcl 12.5 Mg Tablet PO 12.5 mg Q6H PRN Administration Anxiety Lactated Ringer's 1,000 mls @ 100 mls/hr 08/04/23 00:00 08/05/23 06:28 Lr - Lactated Ringers Iv IV CONT Not Given .Q10H NIRMALA Ondansetron HCl 4 mg 08/03/23 10:37 Ondansetron Inj 4 Mg/2 Ml Vial IV PUSH Q4H PRN Nausea Radiology Results: ITS Impressio
== END 2023-08-05 09:50 | disposition home or self-care (01) ==
LOC: ANHED 10:42 → ANH3MEDSUR 08-04 08:28
PROVIDERS: Emergency Medicine; Nurse Practitioner Acute Care; Physician Assistant; Admitting Provider Internal Medicine; Emergency Provider Emergency Medicine; Visit Provider Student in an Organized Health Care Education/Training Program
DX: R55 Syncope and collapse (principal); R07.9 Chest pain, unspecified; R82.90 Unspecified abnormal findings in urine; I10 Essential (primary) hypertension; B96.20 Unspecified Escherichia coli [E. coli] as the cause of diseases classified elsewhere; R50.9 Fever, unspecified; R06.02 Shortness of breath; R94.31 Abnormal electrocardiogram [ECG] [EKG]; R63.0 Anorexia; K76.0 Fatty (change of) liver, not elsewhere classified; Z68.44 Body mass index [BMI] 60.0-69.9, adult; D72.829 Elevated white blood cell count, unspecified; I35.0 Nonrheumatic aortic (valve) stenosis; R74.01 Elevation of levels of liver transaminase levels; R51.9 Headache, unspecified; M54.2 Cervicalgia; F41.9 Anxiety disorder, unspecified; J45.909 Unspecified asthma, uncomplicated; F60.3 Borderline personality disorder; F43.10 Post-traumatic stress disorder, unspecified; F32.A Depression, unspecified; R56.9 Unspecified convulsions; F12.90 Cannabis use, unspecified, uncomplicated
CPT/HCPCS: 36415; 71275; 74177; 76705; 80048; 80053; 81001; 81025; 82948; 83690; 83735; 84484; 85025; 85027; 86140; 87077; 87086; 87186; 93005; 96361; 96365; 96366; 96367; 96372; 96375; 99285; A9270; C8929; G0378; G0379; J0696; J1650; J1836; J1885; J2270; J2405; J7030; J7120; Q9957; Q9967